=== PATIENT | male | born 1950 | race Caucasian/White ===

== ENCOUNTER 2018-02-25 18:20 | Inpatient (IN) ==
--- NOTE | 2018-02-25 18:43 | Emergency Department Note ---
Disposition Clinical Impression: Septic olecranon bursitis of right elbow Disposition: Admitted As Inpatient Condition: Fair General Adult HPI - General Chief complaint: ED Skin/Abscess/Foreign Body Stated complaint: Right Elbow infection Nursing Notes Reviewed: Yes Vital Signs Reviewed: Yes - History of Present Illness HPI Narrative: 67-year-old male presents to the emergency department with concern for right elbow pain and swelling. Patient reports noticing some redness and swelling there since last Tuesday. Patient was given Bactrim and mupirocin ointment a few days ago. Patient presents to the emergency department because things have gotten worse. Patient denies any fevers. - Related Data Home Medications Medication Instructions Recorded Confirmed HYDROcodone/Acet 10/325 mg [[place] 1.5 tab PO TIDWM 02/23/18 02/25/18 10-325 mg] Mupirocin [Bactroban Oint] 1 TP 02/25/18 Omeprazole [PriLOSEC] 40 mg PO DAILY 02/25/18 02/25/18 Sulfamethoxazole/Trimeth Oral 800 mg PO BID 02/25/18 02/25/18 Allergies Allergy/AdvReac Type Severity Reaction Status Date / Time No Known Allergies Allergy Verified 02/23/18 17:23 All systems ED: reviewed and negative except as stated. Review of Systems: As Per HPI Constitutional: Denies: fever Cardiovascular: Denies: chest pain Respiratory: Denies: dyspnea Gastrointestinal: Denies: abdominal pain Genitourinary: Denies: urgency Musculoskeletal: Reports: other (Right elbow pain) Integumentary: Reports: other (Right elbow swelling and erythema) Neurological: Denies: headache Endocrine: Denies: fatigue Past Medical History - Past Medical History Medical history: Reports: other Surgical history: Reports: non-contributory Psychiatric history: Reports: no psych history - Social History Smoking Status: Current every day smoker Smokeless Tobacco Status: No Alcohol use: Reports: none Physical Exam - Head Head exam: atraumatic, normocephalic - Eye Eye exam: Present: EOMI - ENT ENT exam: normal oropharynx - Neck Neck exam: Present: trachea midline - Chest Chest inspection: Present: symmetric chest wall rise - Respiratory Respiratory exam: Present: normal lung sounds bilaterally. Absent: respiratory distress - Cardiovascular Cardiovascular exam: Present: regular rate, normal rhythm, normal heart sounds - Abdominal Exam Abdominal exam: Absent: distention, guarding, rebound, rigidity - Extremities Exam Extremities exam: Present: normal capillary refill - Expanded Upper Extremity Exam Elbow exam: Present: tenderness (Purulent drainage of the right elbow), swelling - Back Exam Back exam: Absent: CVA tenderness (R), CVA tenderness (L) - Neurological Exam Neurological exam: Present: alert, oriented X3 - Psychiatric Psychiatric exam: Present: normal affect, normal mood - Skin Skin exam: Present: warm, dry, intact Course Vital Signs Temperature 98.1 F 02/25/18 18:21 Pulse Rate 73 02/25/18 18:21 Respiratory Rate 16 02/25/18 18:21 Blood Pressure 128/78 02/25/18 18:21 O2 Sat by Pulse Oximetry 96 02/25/18 18:21 Temperature 99.2 F 02/25/18 23:18 Pulse Rate 75 02/25/18 23:18 Respiratory Rate 16 02/25/18 23:18 Blood Pressure 143/83 02/25/18 23:18 O2 Sat by Pulse Oximetry 98 02/25/18 23:18 Oxygen Delivery Oxygen Delivery Room Air Procedures - Bursa Procedures Consent Obtained: verbal consent Time Out Performed: Yes Side of body: right Site of Procedure: olecranon bursa XRAY Obtained: other (CT scan obtained) Antisepsis Used: Chlorhexidine Amount of anesthesia used (mL): 5 Fluid Obtained (mls): 1 Fluid Type: purulent Patient Tolerated Procedure: well, no complications Medical Decision Making - [facility] Narrative Medical decision making narrative: 67-year-old male presents emergency department with concern for erythema and swelling of the right elbow. This time, the main concern is for septic bursitis. Patient failed outpatient management on Bactrim and mupirocin ointment. We will obtain CT scan of the right elbow with IV contrast. We will give fluids. We will obtain CBC, BMP, sedimentation rate, CRP. We have offered patient medicine for pain, but he states he does not want any at this time. We have started IV clindamycin and IV vancomycin. CT scan of the elbow reveals olecranon bursitis with fluid collection measuring 1.5 x 2.4 x 2.5 cm with surrounding subcutaneous edema and adjacent skin thickening suggesting cellulitis. No concern for osseous abnormality and no evidence for osteomyelitis. Patient had a leukocytosis of 17.2. I have spoken with orthopedic surgery. Dr. Rincon states he will follow patient in the morning. The laceration was attempted. Did not to to drain much. The bursa was filled with purulent material. We have cultured it. Spoke with Dr. Mohan the hospitalist. He agreed to accept patient for admission. Vital Signs Temperature 98.1 F 02/25/18 18:21 Pulse Rate 73 02/25/18 18:21 Respiratory Rate 16 02/25/18 18:21 Blood Pressure 128/78 02/25/18 18:21 O2 Sat by Pulse Oximetry 96 02/25/18 18:21 Temperature 99.2 F 02/25/18 23:18 Pulse Rate 75 02/25/18 23:18 Respiratory Rate 16 02/25/18 23:18 Blood Pressure 143/83 02/25/18 23:18 O2 Sat by Pulse Oximetry 98 02/25/18 23:18 Oxygen Delivery Oxygen Delivery Room Air Elbow CT 02/25/18 18:44 IMPRESSION: 1. Olecranon bursitis with fluid collection present measuring approximate 1.5 x 2.4 x 2.5 cm. Pronounced surrounding subcutaneous edema and adjacent skin thickening suggesting cellulitis. Edema extends into the visualized forearm and also involve the visualized distal arm. 2. No acute osseous abnormality and no evidence for osteomyelitis. D/ / Ish Santoyo MD / Ish Santoyo MD Interpreting Provider: Ish Santoyo MD Elbow CT 02/25/18 18:44 IMPRESSION: 1. Olecranon bursitis with fluid collection present measuring approximate 1.5 x 2.4 x 2.5 cm. Pronounced surrounding subcutaneous edema and adjacent skin thickening suggesting cellulitis. Edema extends into the visualized forearm and also involve the visualized distal arm. 2. No acute osseous abnormality and no evidence for osteomyelitis. D/ / Ish Santoyo MD / Ish Santoyo MD Interpreting Provider: Ish Santoyo MD - Lab Data Result diagrams: 02/25/18 18:50 02/25/18 18:50 Lab Results 02/25/18 02/25/18 02/25/18 Range/Units 18:50 18:50 18:50 WBC 17.2 H (4.3-11.1) K/mcL RBC 3.94 L (4.19-5.50) M/mcL Hgb 11.9 L (12.9-16.9) g/dL Hct 34.9 L (37.5-50.1) % MCV 88.6 (83.0-100.0) fL MCH 30.2 (28.0-33.3) pg MCHC 34.1 (31.6-35.5) g/dL RDW 12.5 (11.5-14.5) % Plt Count 165 (140-400) K/mcL MPV 12.2 (9.4-12.4) fL Immature Gran % 0.4 (0-4) % Seg Neutrophils % 81.3 % Lymphocytes % 9.9 % Monocytes % 7.6 % Eosinophils % 0.6 % Basophils % 0.2 % Neutrophils # 14.0 H (1.6-8.9) K/mcL Lymphocytes # 1.7 (0.6-4.6) K/mcL Monocytes # 1.3 (0.0-1.3) K/mcL Eosinophils # 0.1 (0.0-0.6) K/mcL Basophils # 0.0 (0.0-0.2) K/mcL ESR 19 H (0-10) mm/hr Sodium 139 (136-145) mEq/L Potassium 4.1 (3.5-5.1) mEq/L Chloride 110 H (98-107) mEq/L Carbon Dioxide 23 (23-29) mEq/L BUN 23 (8-23) mg/dL Creatinine 1.19 (0.70-1.30) mg/dL Est GFR ( Amer) > 60 (> 60) Est GFR (Non-Af Amer) > 60 (> 60) BUN/Creatinine Ratio 19 (6-26) Glucose 111 H (70-105) mg/dL Calculated Osmolality 292 (280-300) Lactic Acid (0.5-2.2) mmol/L Calcium 9.2 (8.6-10.3) mg/dL C-Reactive Protein 169 H (Less than 10) mg/L 02/25/18 Range/Units 18:50 WBC (4.3-11.1) K/mcL RBC (4.19-5.50) M/mcL Hgb (12.9-16.9) g/dL Hct (37.5-50.1) % MCV (83.0-100.0) fL MCH (28.0-33.3) pg MCHC (31.6-35.5) g/dL RDW (11.5-14.5) % Plt Count (140-400) K/mcL MPV (9.4-12.4) fL Immature Gran % (0-4) % Seg Neutrophils % % Lymphocytes % % Monocytes % % Eosinophils % % Basophils % % Neutrophils # (1.6-8.9) K/mcL Lymphocytes # (0.6-4.6) K/mcL Monocytes # (0.0-1.3) K/mcL Eosinophils # (0.0-0.6) K/mcL Basophils # (0.0-0.2) K/mcL ESR (0-10) mm/hr Sodium (136-145) mEq/L Potassium (3.5-5.1) mEq/L Chloride (98-107) mEq/L Carbon Dioxide (23-29) mEq/L BUN (8-23) mg/dL Creatinine (0.70-1.30) mg/dL Est GFR ( Amer) (> 60) Est GFR (Non-Af Amer) (> 60) BUN/Creatinine Ratio (6-26) Glucose (70-105) mg/dL Calculated Osmolality (280-300) Lactic Acid 0.9 (0.5-2.2) mmol/L Calcium (8.6-10.3) mg/dL C-Reactive Protein (Less than 10) mg/L
[2018-02-25] MEDS ORDERED: Isovue-370 500 ML INFUS..BTL IV ONE (18:44)
[2018-02-25] MEDS ORDERED: 0.9 % Sodium Chloride 1,000 ML IVC ONE (18:47)
[2018-02-25] MEDS ORDERED: Clindamycin 900 MG/50 ML 900 MG/50 ML IV.SOLN IVPB ONE (18:48)
--- NOTE | 2018-02-25 18:48 | Emergency Department Note ---
Disposition Clinical Impression: Septic olecranon bursitis of right elbow Disposition: Admitted As Inpatient Condition: Fair Referrals: Medhat Jones Jr, MD [Primary Care Provider] - Forms: ED Satisfaction Letter Time of Disposition: 21:49 General Adult HPI - General Chief complaint: ED Skin/Abscess/Foreign Body Stated complaint: Right Elbow infection Source: patient - History of Present Illness Pain Scale: 3 - Related Data Home Medications Medication Instructions Recorded Confirmed Fluoxetine 02/23/18 02/23/18 Hydrocodon-Acetaminophn 10-325 02/23/18 Morphine Sulfate ER 02/23/18 Naprosyn 02/23/18 Prilosec Otc 02/23/18 Zanaflex 02/23/18 Previous Rx's Medication Instructions Recorded Mupirocin [Bactroban Oint] 1 appl TP BID 7 Days tube 02/23/18 Sulfamethoxazole/Trimeth DS 1 each PO BID #14 tablet 02/23/18 [Bactrim DS] Allergies Allergy/AdvReac Type Severity Reaction Status Date / Time No Known Allergies Allergy Verified 02/23/18 17:23 Past Medical History - Past Medical History Medical history: Reports: other Surgical history: Reports: non-contributory Psychiatric history: Reports: no psych history - Social History Smoking Status: Current every day smoker Smokeless Tobacco Status: No Alcohol use: Reports: none Drug use: Reports: none Physical Exam - General General appearance: alert Course Vital Signs Temperature 98.1 F 02/25/18 18:21 Pulse Rate 73 02/25/18 18:21 Respiratory Rate 16 02/25/18 18:21 Blood Pressure 128/78 02/25/18 18:21 O2 Sat by Pulse Oximetry 96 02/25/18 18:21 Temperature 98.1 F 02/25/18 18:29 Pulse Rate 67 02/25/18 20:25 Respiratory Rate 16 02/25/18 20:25 Blood Pressure 141/75 02/25/18 20:25 O2 Sat by Pulse Oximetry 97 02/25/18 20:25 Oxygen Delivery Oxygen Delivery Room Air Medical Decision Making - Lab Data Result diagrams: 02/25/18 18:50 02/25/18 18:50 Lab Results 02/25/18 02/25/18 02/25/18 Range/Units 18:50 18:50 18:50 WBC 17.2 H (4.3-11.1) K/mcL RBC 3.94 L (4.19-5.50) M/mcL Hgb 11.9 L (12.9-16.9) g/dL Hct 34.9 L (37.5-50.1) % MCV 88.6 (83.0-100.0) fL MCH 30.2 (28.0-33.3) pg MCHC 34.1 (31.6-35.5) g/dL RDW 12.5 (11.5-14.5) % Plt Count 165 (140-400) K/mcL MPV 12.2 (9.4-12.4) fL Immature Gran % 0.4 (0-4) % Seg Neutrophils % 81.3 % Lymphocytes % 9.9 % Monocytes % 7.6 % Eosinophils % 0.6 % Basophils % 0.2 % Neutrophils # 14.0 H (1.6-8.9) K/mcL Lymphocytes # 1.7 (0.6-4.6) K/mcL Monocytes # 1.3 (0.0-1.3) K/mcL Eosinophils # 0.1 (0.0-0.6) K/mcL Basophils # 0.0 (0.0-0.2) K/mcL ESR 19 H (0-10) mm/hr Sodium 139 (136-145) mEq/L Potassium 4.1 (3.5-5.1) mEq/L Chloride 110 H (98-107) mEq/L Carbon Dioxide 23 (23-29) mEq/L BUN 23 (8-23) mg/dL Creatinine 1.19 (0.70-1.30) mg/dL Est GFR ( Amer) > 60 (> 60) Est GFR (Non-Af Amer) > 60 (> 60) BUN/Creatinine Ratio 19 (6-26) Glucose 111 H (70-105) mg/dL Calculated Osmolality 292 (280-300) Lactic Acid (0.5-2.2) mmol/L Calcium 9.2 (8.6-10.3) mg/dL C-Reactive Protein 169 H (Less than 10) mg/L 02/25/18 Range/Units 18:50 WBC (4.3-11.1) K/mcL RBC (4.19-5.50) M/mcL Hgb (12.9-16.9) g/dL Hct (37.5-50.1) % MCV (83.0-100.0) fL MCH (28.0-33.3) pg MCHC (31.6-35.5) g/dL RDW (11.5-14.5) % Plt Count (140-400) K/mcL MPV (9.4-12.4) fL Immature Gran % (0-4) % Seg Neutrophils % % Lymphocytes % % Monocytes % % Eosinophils % % Basophils % % Neutrophils # (1.6-8.9) K/mcL Lymphocytes # (0.6-4.6) K/mcL Monocytes # (0.0-1.3) K/mcL Eosinophils # (0.0-0.6) K/mcL Basophils # (0.0-0.2) K/mcL ESR (0-10) mm/hr Sodium (136-145) mEq/L Potassium (3.5-5.1) mEq/L Chloride (98-107) mEq/L Carbon Dioxide (23-29) mEq/L BUN (8-23) mg/dL Creatinine (0.70-1.30) mg/dL Est GFR ( Amer) (> 60) Est GFR (Non-Af Amer) (> 60) BUN/Creatinine Ratio (6-26) Glucose (70-105) mg/dL Calculated Osmolality (280-300) Lactic Acid 0.9 (0.5-2.2) mmol/L Calcium (8.6-10.3) mg/dL C-Reactive Protein (Less than 10) mg/L Attestation Statement - Attestation Attestation: I examined this patient and my medical decision-making was reviewed with the Resident Physician. I agree with the documented findings, disposition and treatment plan as described except to the extent set forth below. Patient presents to the ED with achievement right elbow pain. Patient states is been red and swollen for a week. He was seen at urgent care and been taken Bactrim and putting mupirocin ointment on it. Getting worse. On examination patient is a tender swollen erythematous right elbow. Mostly located over the olecranon. He does have some swelling that extends into the forearm. Plan. Antibiotics and labs. Bedside ultrasound was difficult to obtain as the area is rounded. We will check a CT scan. IV antibiotic and admit with orthopaedic consult. CT shows bursitis. Septic. Attempted to needle aspirate with an 18-gauge needle. Contents of the bursa today to be aspirated. A small amount of jeana pus came from the insertion site of the needle which was sent for culture. Will admit to hospitalist. Elbow CT 02/25/18 18:44 IMPRESSION: 1. Olecranon bursitis with fluid collection present measuring approximate 1.5 x 2.4 x 2.5 cm. Pronounced surrounding subcutaneous edema and adjacent skin thickening suggesting cellulitis. Edema extends into the visualized forearm and also involve the visualized distal arm. 2. No acute osseous abnormality and no evidence for osteomyelitis. D/ / Ish Santoyo MD / Ish Santoyo MD Interpreting Provider: Ish Santoyo MD
[2018-02-25] MEDS ORDERED: Vancomycin 1,000 MG in 0.9 % Sodium Chloride 10 ML IVPB ONE (18:49)
[2018-02-25 19:06] LABS: Basophils % 0.2 %; Eosinophils # 0.1 K/mcL (0.0-0.6); Eosinophils % 0.6 %; Hematocrit 34.9 % (37.5-50.1); Hemoglobin 11.9 g/dL (12.9-16.9); Immature Granulocytes % 0.4 % (0-4); Lymphocytes # 1.7 K/mcL (0.6-4.6); Lymphocytes % 9.9 %; Mean Corpuscular HGB Conc 34.1 g/dL (31.6-35.5); Mean Corpuscular Hemoglobin 30.2 pg (28.0-33.3); Mean Corpuscular Volume 88.6 fL (83.0-100.0); Mean Platelet Volume 12.2 fL (9.4-12.4); Monocytes # 1.3 K/mcL (0.0-1.3); Monocytes % 7.6 %; Platelet Count 165 K/mcL (140-400); Red Blood Count 3.94 M/mcL (4.19-5.50); Red Cell Distribution Width 12.5 % (11.5-14.5); Segmented Neutrophils % 81.3 %
[2018-02-25 19:31] LABS: BUN/Creatinine Ratio 19 (6-26); Blood Urea Nitrogen 23 mg/dL (8-23); C-Reactive Protein 169 mg/L (Less than 10); Calcium 9.2 mg/dL (8.6-10.3); Carbon Dioxide 23 mEq/L (23-29); Chloride 110 mEq/L (98-107); Glucose 111 mg/dL (70-105); Osmolality,Calculated 292 (280-300); Potassium 4.1 mEq/L (3.5-5.1); Sodium 139 mEq/L (136-145); eGFR For African Americans > 60 (> 60); eGFR For Non-African Americans > 60 (> 60)
[2018-02-25] MEDS ORDERED: Lidocaine -MPF 1% 2 ML VIAL INFILT ONE (21:03)
[2018-02-25] MEDS ORDERED: *HR* OxyCODONE/APAP 5/325 TABLET PO ONE (21:23)
[2018-02-26] MEDS ORDERED: Naloxone 0.4 MG/ML INJ IVP PRN (00:35)
--- NOTE | 2018-02-26 00:46 | Internal Med History&Physical ---
Date of Encounter: 02/26/18 Time of Encounter: 00:15 Internal Medicine - H&P: HPI Chief complaint: right elbow pain/swelling Admitted From: Emergency Dept Plans for Post Hospital Care: Home History of present illness: Mr. Jackson is a 67 year old male who presents to the ER tonight with complaints of pain, swelling, redness, and a draining lesion from his right elbow. He first noticed a small pustule about a week ago in his elbow. It then grew and became increasingly tender and warm and swollen over the next several days. He went to the urgent care 3 days ago for evaluation and was placed on antibiotics along with an ointment. He took these antibiotics as prescribed. Nonetheless, the wound became more severe and the pain more intense. He therefore came to ER for evaluation. In the ER, he was found to have some leukocytosis, profound redness, swelling, tenderness and drainage from his wound. A CT scan was performed and revealed olecranon bursitis with surrounding edema suggesting an infection/cellulitis. He was subsequently admitted to hospitalist service with orthopedic consult to Dr. Rincon. Upon my assessment of the patient, he reiterates the above history. He denies any trauma or injury to his elbow. He denies any recent falling or injury. He has had multiple bug bites this summer, but he denies any direct bug bite to his elbow. He has had no ill contacts. He denies any fevers, chills, or night sweats. Appetite and activity have otherwise been normal. Past Med Surg Social Fam HX - Past Medical History Attestation: Yes The following information was validated with the patient. Source: patient, other (ER notes) Medical history: GERD, other (chronic low back pain) Additional medical history: n/a Psychiatric history: no psych history - Past Surgical History Surgical History: orthopedic, other Additional surgical history: back surgery. lobectomy for spontaneous pneumo - Social History Smoking Status: Current every day smoker Smokeless Tobacco Status: No Alcohol use: none Drug use: none Current living situation: Home, With Family Activity Level: Independent ambulation Recent Out of Country Travel Within the Last 8 Weeks: No - Family History Father Age at : 80 Cause of : CABG Hx Family Cardiac Disorders: Yes (MULTIPLE KS'S, CABG, CHF) Hx Family Neurologic Disorders: Yes (STROKE) Mother Living Status: Still Living Internal Medicine - H&P: Meds HYDROcodone/Acet 10/325 mg [[place] 10-325 mg] 1.5 tab PO TIDWM 02/23/18 [History] Mupirocin [Bactroban Oint] 1 TP 02/25/18 [History] Omeprazole [PriLOSEC] 40 mg PO DAILY 02/25/18 [History] Sulfamethoxazole/Trimeth Oral 800 mg PO BID 02/25/18 [History] 3 Allergy/AdvReac Type Severity Reaction Status Date / Time No Known Allergies Allergy Verified 02/23/18 17:23 - Constitutional Constitutional: no chills, no fever(s), no night sweats - EENT Eyes: no change in vision Ears: no ear pain, no tinnitus Nose, mouth and throat: no nasal congestion, no sore throat - Cardiovascular Cardiovascular ROS IM: no chest pain, no dyspnea, no dyspnea on exertion - Respiratory Respiratory: no cough, no chest congestion, no excessive phlegm production - Gastrointestinal Gastrointestinal: no abdominal pain, no diarrhea, no vomiting - Genitourinary Genitourinary ROS male: no dysuria, no flank pain, no hematuria - Musculoskeletal Musculoskeletal ROS IM: arthralgias (right elbow), joint swelling (right elbow) - Integumentary Integumentary IM: erythema (right elbow), no rash, no jaundice - Neurological Neurological ROS: no dizziness, no focal weakness, no frequent falls, no headache(s) - Psychiatric Psychiatric: no anxiety, no depression - Endocrine Endocrine IM: no polydipsia, no polyuria - Allergic/Immunologic Allergic/Immunologic: no GI upset with certain foods - Constitutional Vitals: Temp Pulse Resp BP Pulse Ox 99.2 F 75 16 143/83 98 02/25/18 23:18 02/25/18 23:18 02/25/18 23:18 02/25/18 23:18 02/25/18 23:18 General appearance: Present: cooperative, A&O X 3, pleasant, no acute distress - Head Head exam: Present: atraumatic, normal inspection - Eye Eye exam: Present: EOMI, normal appearance, PERRL. Absent: scleral icterus Pupils: Present: normal accommodation - ENT ENT exam: Present: mucous membranes moist, normal exam - Neck Neck exam general surgery: Present: full ROM, supple. Absent: tenderness, nuchal rigidity, thyromegaly - Respiratory Respiratory exam: Present: CTAB. Absent: rales, rhonchi, wheezes - Cardiovascular Cardiovascular exam: Present: RRR, +S1, +S2. Absent: diastolic murmur, systolic murmur - GI/Abdominal GI/Abdominal exam: Present: normal bowel sounds, soft. Absent: hepatomegaly, splenomegaly, tenderness - Extremities Exam Extremities exam: Present: full ROM, joint swelling (right elbow with draining wound and surrounding cellulitis), tenderness (right elbow), radial pulses palpable and symmetrical. Absent: calf tenderness, pedal edema Additional comments: right forearm/hand neurovascularly intact - Back Exam Back exam: Absent: CVA tenderness (L), CVA tenderness (R) - Neurological Exam Neurological exam: Present: alert, CN II-XII intact, oriented X3, no focal deficits, strengths equal and symetr throughout - Psychiatric Psychiatric exam: Present: normal affect, normal mood - Skin Skin exam: Present: dry, warm Internal Med - H&P Results - Labs CBC & Chem 7: 02/25/18 18:50 02/25/18 18:50 - Diagnostic Studies Other Images Status: image reviewed by me (CT ELBOW: images reviewed; report reviewed) - Assessment and plan (1) Septic olecranon bursitis of right elbow Current Visit: Yes Status: Acute Assessment and plan: 1. Wound culture obtained in ER. 2. Patient advised to keep arm elevated while in bed. 3. Dr. Rincon consulted from ER -- will see in the morning and proceed with intervention as necessary. 4. Antibiotics and pain control. (2) Cellulitis Current Visit: Yes Status: Acute Assessment and plan: 1. Will place patient on IV Vancomycin and Zosyn. 2. Wound cultures obtained -- follow and adjust antibiotics per culture results. 3. Wound care/intervention per Dr. Rincon. 4. Patient failed outpatient treatment thus necessitating IV antibiotics and surgical intervention. Qualifiers: Site of cellulitis: extremity Site of cellulitis of extremity: upper extremity Laterality: right Qualified Code(s): L03.113 - Cellulitis of right upper limb (3) Chronic GERD Current Visit: Yes Status: Chronic Assessment and plan: 1. Continue Omeprazole. (4) DVT prophylaxis Current Visit: Yes Status: Acute Assessment and plan: 1. Heparin SQ.
[2018-02-26] MEDS: Ibuprofen 400 MG TABLET PO PRN ×3 (01:25→23:58)
[2018-02-26] MEDS: *HR* HYDROcodone/Acet 10/325 mg TABLET PO SCH ×4 (01:25→17:10)
[2018-02-26] MEDS: 0.9 % Sodium Chloride 1,000 ML IVC SCH ×2 (01:26→15:00)
[2018-02-26 02:20] LABS: Basophils % 0.2 %; Eosinophils # 0.1 K/mcL (0.0-0.6); Eosinophils % 0.3 %; Hematocrit 33.2 % (37.5-50.1); Hemoglobin 11.3 g/dL (12.9-16.9); Immature Granulocytes % 0.3 % (0-4); Lymphocytes # 1.7 K/mcL (0.6-4.6); Lymphocytes % 9.8 %; Mean Corpuscular Hemoglobin 30.5 pg (28.0-33.3); Mean Corpuscular Volume 89.5 fL (83.0-100.0); Mean Platelet Volume 12.6 fL (9.4-12.4); Monocytes # 1.2 K/mcL (0.0-1.3); Monocytes % 6.7 %; Neutrophils # 14.7 K/mcL (1.6-8.9); Platelet Count 160 K/mcL (140-400); Red Blood Count 3.71 M/mcL (4.19-5.50); Red Cell Distribution Width 12.6 % (11.5-14.5); Segmented Neutrophils % 82.7 %
[2018-02-26 02:28] LABS: INR 1.2
[2018-02-26 02:31] LABS: Activated Partial Thrombo Time 29.7 Seconds (26.0-36.0)
[2018-02-26 02:34] LABS: Alanine Aminotransferase 9 Units/L (7-52); Albumin/Globulin Ratio 1.4 (1.1-2.2); Alkaline Phosphatase 95 Units/L (34-104); Aspartate Amino Transferase 14 Units/L (13-39); BUN/Creatinine Ratio 17 (6-26); Bilirubin,Total 0.5 mg/dL (0.3-1.0); Blood Urea Nitrogen 18 mg/dL (8-23); Carbon Dioxide 20 mEq/L (23-29); Chloride 111 mEq/L (98-107); Globulin 2.8 g/dL (2.4-3.5); Glucose 100 mg/dL (70-105); Osmolality,Calculated 286 (280-300); Sodium 137 mEq/L (136-145); Total Protein 6.8 g/dL (6.4-8.9); eGFR For African Americans > 60 (> 60); eGFR For Non-African Americans > 60 (> 60)
[2018-02-26] MEDS: *HR* Heparin 5,000 UNIT/ML VIAL SQ SCH ×2 (06:52→16:47)
[2018-02-26] MEDS: Piperacillin/Tazobactam 3.375 GM in 0.9 % Sodium Chloride Mini Bag 100 ML IVPB SCH ×3 (07:38→23:58)
--- NOTE | 2018-02-26 07:54 | Orthopedic Consult Note ---
Date of Encounter: 02/26/18 Time of Encounter: 07:53 History of Present Illness HPI: Mr. Jackson is a 67 year old male Seen this morning with admission for an infected olecranon bursitis. Patient had a small opening placed to drain the bursa by the ER doc. Patient on IV antibiotics. Right upper extremity Dressing clean dry and intact Neurovascular intact Minimal pain on motion We will continue to monitor recommend 24-48 hours of IV antibiotics. Past Med Surg Social Fam HX - Past Medical History Medical history: GERD, other (chronic low back pain) Additional medical history: n/a Psychiatric history: no psych history - Past Surgical History Surgical History: orthopedic, other Additional surgical history: back surgery. lobectomy for spontaneous pneumo - Social History Smoking Status: Current every day smoker Smokeless Tobacco Status: No Alcohol use: none Drug use: none - Family History Father Age at : 80 Cause of : CABG Hx Family Cardiac Disorders: Yes (MULTIPLE IL'S, CABG, CHF) Hx Family Neurologic Disorders: Yes (STROKE) Mother Living Status: Still Living Medications and Allergies HYDROcodone/Acet 10/325 mg [[place] 10-325 mg] 1.5 tab PO TIDWM 02/23/18 [History] Mupirocin [Bactroban Oint] 1 TP 02/25/18 [History] Omeprazole [PriLOSEC] 40 mg PO DAILY 02/25/18 [History] Sulfamethoxazole/Trimeth Oral 800 mg PO BID 02/25/18 [History] 3 Allergy/AdvReac Type Severity Reaction Status Date / Time No Known Allergies Allergy Verified 02/23/18 17:23 All Systems Reviewed: The remainder of the systems were reviewed and are negative Physical Exam - Constitutional Vitals: Temp Pulse Resp BP Pulse Ox 99.1 F 69 16 100/52 96 02/26/18 04:35 02/26/18 04:35 02/26/18 04:35 02/26/18 04:35 02/26/18 04:35 Results - Labs Result Diagrams: 02/26/18 01:54 02/26/18 01:54 Labs: Abnormal lab results WBC 17.8 K/mcL (4.3-11.1) H 02/26/18 01:54 RBC 3.71 M/mcL (4.19-5.50) L 02/26/18 01:54 Hgb 11.3 g/dL (12.9-16.9) L 02/26/18 01:54 Hct 33.2 % (37.5-50.1) L 02/26/18 01:54 MPV 12.6 fL (9.4-12.4) H 02/26/18 01:54 Neutrophils # 14.7 K/mcL (1.6-8.9) H 02/26/18 01:54 ESR 19 mm/hr (0-10) H 02/25/18 18:50 PT 13.0 Seconds (9.4-12.1) H 02/26/18 01:54 Chloride 111 mEq/L (98-107) H 02/26/18 01:54 Carbon Dioxide 20 mEq/L (23-29) L 02/26/18 01:54 C-Reactive Protein 169 mg/L (Less than 10) H 02/25/18 18:50 H & H 02/26/18 Range/Units 01:54 Hgb 11.3 L (12.9-16.9) g/dL Hct 33.2 L (37.5-50.1) % All other labs normal. Consult Discharge Plan - Plan Referrals: Medhat Jones Jr, MD [Primary Care Provider] -
--- NOTE | 2018-02-26 14:59 | Event Note ---
Date of Encounter: 02/26/18 Time of Encounter: 08:55 Patient is awake and alert. Pain is somewhat improved in right elbow. Denies any fever or chills. No nausea or vomiting. Evaluated by orthopedics. Continue current antibiotics.
--- NOTE | 2018-02-27 06:21 | Orthopedics Progress Note ---
Date of Encounter: 02/27/18 Time of Encounter: 06:20 Subjective Interval history: Patient seen this morning for right elbow. Physical exam shows sloughing of skin no obvious drainage No significant pain of motion. Patient will be evaluated by hand/elbow surgeon for further treatment. Objective Vital signs: Vital Signs Temp Pulse Resp BP Pulse Ox 02/27/18 00:04 97.9 F 60 18 112/72 96 02/26/18 19:04 98.1 F 57 18 103/53 95 02/26/18 15:20 99.1 F 69 18 114/63 95 02/26/18 11:26 99.0 F 66 18 110/79 95 02/26/18 08:08 96 02/26/18 08:00 99.4 F 66 18 107/61 96 Intake and Output 02/26/18 02/26/18 02/27/18 15:59 23:59 07:59 Intake Total 1590 / 1590 960 / 960 350 / 350 Output Total 700 / 700 Balance 1590 / 1590 960 / 960 -350 / -350 Intake: IV Fluids 1350 / 1350 350 / 350 100 / 100 0.9 % Sodium Chloride 1,000 ML 1000 / 1000 @ 100 mls/hr IVC .Q10H RONIT Rx#: [id number] Zosyn 3.375 GM In 0.9 % Sodium 100 / 100 100 / 100 100 / 100 Chloride (Mini-Bag +) 100 ML @ 25 mls/hr IVPB Q8HR RONIT Rx#: [id number] Vancocin 1,250 MG In 0.9 % 250 / 250 250 / 250 Sodium Chloride 250 ML @ 166.67 mls/hr IVPB Q12H RONIT Rx#: [id number] Oral 240 / 240 610 / 610 250 / 250 Output: Urine 700 / 700 Other: Meal Breakfast Dinner Percent of Meal Consumed 100% 100% # Voids 1 1 - Labs CBC & BMP: 02/26/18 01:54 02/26/18 01:54 Labs: Abnormal lab results WBC 17.8 K/mcL (4.3-11.1) H 02/26/18 01:54 RBC 3.71 M/mcL (4.19-5.50) L 02/26/18 01:54 Hgb 11.3 g/dL (12.9-16.9) L 02/26/18 01:54 Hct 33.2 % (37.5-50.1) L 02/26/18 01:54 MPV 12.6 fL (9.4-12.4) H 02/26/18 01:54 Neutrophils # 14.7 K/mcL (1.6-8.9) H 02/26/18 01:54 ESR 19 mm/hr (0-10) H 02/25/18 18:50 PT 13.0 Seconds (9.4-12.1) H 02/26/18 01:54 Chloride 111 mEq/L (98-107) H 02/26/18 01:54 Carbon Dioxide 20 mEq/L (23-29) L 02/26/18 01:54 C-Reactive Protein 169 mg/L (Less than 10) H 02/25/18 18:50 Consult Discharge Plan - Plan Referrals: Medhat Jones Jr, MD [Primary Care Provider] -
[2018-02-27] MEDS: *HR* Heparin 5,000 UNIT/ML VIAL SQ SCH ×2 (06:23→18:09)
[2018-02-27] MEDS ORDERED: Aminoglycoside Consult 1 EACH MC ONE (07:24)
[2018-02-27] MEDS: *HR* HYDROcodone/Acet 10/325 mg TABLET PO SCH ×3 (08:17→16:16)
[2018-02-27] MEDS: Piperacillin/Tazobactam 3.375 GM in 0.9 % Sodium Chloride Mini Bag 100 ML IVPB SCH ×3 (08:17→23:23)
--- NOTE | 2018-02-27 10:31 | Orthopedics Progress Note ---
Date of Encounter: 02/27/18 Time of Encounter: 10:00 - Assessment and Plan (1) Septic olecranon bursitis of right elbow Current Visit: Yes Status: Acute Discussed case with Dr. Zarate. Recommend surgical incision and drainage of the right elbow. Plan for surgery by Dr. Zarate tomorrow. Discussed procedure as well as r/b/a with the patient who expressed understanding. Consent obtained. NPO after midnight tonight. ROM of elbow as tolerated. Elevate and ice as needed. Nurse will recover with dry gauze/kerlix dressings. Preliminary cx shows presumptive staph. Continue IV abx. Subjective Principal diagnosis: right elbow olecranon bursitis Interval history: This is my first evaluation of this patient. Brief history - Patient first notice roughly 1 week ago a small raised area on right elbow like a pimple that he opened and got a small amount pus drainage at that time. Since that time he states the area has become more swollen, red and painful. He went to urgent care on 02/23/18 and was given bactrim and bactroban ointment. He felt it continued to worsen and came to the ER 2 days later. In ER aspiration was attempted. He has been on IV abx since that time. Patient states the elbow feels a little better over the past 2 days. He does c/o aching pain constant, worse with motion and continued drainage from the wound. Denies any numbness or tingling. He is right hand dominant. Objective Vital signs: Vital Signs Temp Pulse Resp BP Pulse Ox 02/27/18 08:00 97 02/27/18 06:55 99.5 F 70 18 138/65 97 02/27/18 00:04 97.9 F 60 18 112/72 96 02/26/18 19:04 98.1 F 57 18 103/53 95 02/26/18 15:20 99.1 F 69 18 114/63 95 02/26/18 11:26 99.0 F 66 18 110/79 95 Intake and Output 02/26/18 02/27/18 02/27/18 23:59 07:59 15:59 Intake Total 960 / 960 350 / 350 Output Total 700 / 700 Balance 960 / 960 -350 / -350 Intake: IV Fluids 350 / 350 100 / 100 Zosyn 3.375 GM In 0.9 % Sodium 100 / 100 100 / 100 Chloride (Mini-Bag +) 100 ML @ 25 mls/hr IVPB Q8HR RONIT Rx#: [id number] Vancocin 1,250 MG In 0.9 % 250 / 250 Sodium Chloride 250 ML @ 166.67 mls/hr IVPB Q12H RONIT Rx#: [id number] Oral 610 / 610 250 / 250 Output: Urine 700 / 700 Other: Meal Dinner Percent of Meal Consumed 100% # Voids 1 1 Incision: swollen (right posterior elbow has moderate erythema and swelling with multiple pinpoint openings proximal to the olecranon with purulent drainage expressed from these opening with gentle pressure. Moderate tenderness to palpation, slight fluctuance to this area. Skin sloughing around olecranon. Elbow ROM limited 20-100 degrees. Full ROM of hand and wrist. Grossly NV intact. ) - Labs CBC & BMP: 02/26/18 01:54 02/26/18 01:54 Labs: Abnormal lab results WBC 17.8 K/mcL (4.3-11.1) H 02/26/18 01:54 RBC 3.71 M/mcL (4.19-5.50) L 02/26/18 01:54 Hgb 11.3 g/dL (12.9-16.9) L 02/26/18 01:54 Hct 33.2 % (37.5-50.1) L 02/26/18 01:54 MPV 12.6 fL (9.4-12.4) H 02/26/18 01:54 Neutrophils # 14.7 K/mcL (1.6-8.9) H 02/26/18 01:54 ESR 19 mm/hr (0-10) H 02/25/18 18:50 PT 13.0 Seconds (9.4-12.1) H 02/26/18 01:54 Chloride 111 mEq/L (98-107) H 02/26/18 01:54 Carbon Dioxide 20 mEq/L (23-29) L 02/26/18 01:54 C-Reactive Protein 169 mg/L (Less than 10) H 02/25/18 18:50 Vancomycin Trough 13 mcg/mL (5-10) H 02/27/18 06:40 Consult Discharge Plan - Plan Referrals: Medhat Jones Jr, MD [Primary Care Provider] -
--- NOTE | 2018-02-27 11:25 | Internal Med Progress Note ---
Date of Encounter: 02/27/18 Time of Encounter: 08:50 - Assessment and plan (1) Septic olecranon bursitis of right elbow Current Visit: Yes Status: Acute Assessment and plan: Being evaluated by orthopedics. On IV antibiotics. Clinically getting better. Plan for incision and drainage tomorrow. Wound culture growing gram-positive cocci. On vancomycin for possible MRSA. (2) Cellulitis Current Visit: Yes Status: Acute Assessment and plan: With abscess due to septic bursitis of the olecranon bursa on the right hand. Management as above Qualifiers: Site of cellulitis: extremity Site of cellulitis of extremity: upper extremity Laterality: right Qualified Code(s): L03.113 - Cellulitis of right upper limb (3) DVT prophylaxis Current Visit: Yes Status: Acute Assessment and plan: Continue subcutaneous heparin (4) Chronic GERD Current Visit: Yes Status: Chronic Assessment and plan: On omeprazole. Will continue. - Time Spent With Patient Total time spent is greater than 50% in coordination of care (as documented) at patient's floor/unit and/or counseling patient: - Subjective Interval history: Patient feels that the swelling in his right elbow has improved since yesterday. Pain is less severe. No fever or chills reported overnight. No nausea or vomiting. - Constitutional Vitals: Temp Pulse Resp BP Pulse Ox 99.5 F 70 18 138/65 97 02/27/18 06:55 02/27/18 06:55 02/27/18 06:55 02/27/18 06:55 02/27/18 08:00 General appearance: Present: cooperative, A&O X 3, pleasant, no acute distress - Respiratory Respiratory exam: Present: CTAB. Absent: accessory muscle use, rales, rhonchi, wheezes - Cardiovascular Cardiovascular exam: Present: RRR, +S1, +S2. Absent: diastolic murmur, gallop, rubs, systolic murmur - GI/Abdominal GI/Abdominal exam: Present: normal bowel sounds, soft, no peritoneal signs. Absent: distended, tenderness - Extremities Exam Extremities exam: Present: warm, radial pulses palpable and symmetrical. Absent : calf tenderness, cyanotic, pedal edema Additional comments: Swelling over the right elbow improving. Erythema has significantly come down. Wound is currently bandaged. - Neurological Exam Neurological exam: Present: CN II-XII intact, oriented X3, no focal deficits. Absent: pronater drift, facial droop, speech deficit - Skin Skin exam: Present: dry, intact Internal Medicine: Result - Labs CBC & Chem 7: 02/26/18 01:54 02/26/18 01:54 - ABG Interpretation ABG results: PT/INR, D-dimer PT 13.0 Seconds (9.4-12.1) H 02/26/18 01:54 Consult Discharge Plan - Plan Referrals: Medhat Jones Jr, MD [Primary Care Provider] -
--- NOTE | 2018-02-27 22:50 | Anesthesia Evaluation PreOp ---
Date of Encounter: 02/27/18 Time of Encounter: 22:48 - Past History Planned Operation: Right Elbow Olecranon Bursa I&D Cardiac History: Denies any Significant Hx Pulmonary History: Smoker WOMEN SPECIALIST History: Denies Any Significant HX Other Medical History: GERD, Other (chronic Low back Pain) Anesthesia History: No Prior Anesthetic Complications, Past Anesthesia (back surgery. lobectomy for spontaneous pneumo) Alcohol Use: none Drug use: none Medications and Allergies HYDROcodone/Acet 10/325 mg [[place] 10-325 mg] 1 tab PO Q4H PRN 02/23/18 [History] Mupirocin [Bactroban Oint] 1 appl TP DAILY 02/25/18 [History] Omeprazole [PriLOSEC] 40 mg PO DAILY 02/25/18 [History] Sulfamethoxazole/Trimeth DS [Bactrim DS] 1 tab PO BID 02/25/18 [History] Gabapentin [Neurontin] 600 mg PO HS 02/26/18 [History] 3 Allergy/AdvReac Type Severity Reaction Status Date / Time No Known Allergies Allergy Verified 02/23/18 17:23 - Meds/Allergy Pre-op Review Medications Reviewed: Yes Allergies Reviewed: Yes Beta Blockers on Current Med List: No Anesthesia Results - Labs 02/26/18 01:54 02/26/18 01:54 Anesthesia Exam Vital Signs/O2 Sat, Most Current Temp Pulse Resp BP Pulse Ox 98.7 F 63 18 126/70 95 02/27/18 19:03 02/27/18 19:03 02/27/18 19:03 02/27/18 19:03 02/27/18 19:03 - HEENT Pupil (Motor): Pupils equal, EOMI Anesthesia Assess/Plan ASA Score: 2 Anesthetic Plan: General Monitoring Plan: Standard Monitors Recovery Plan: PACU
[2018-02-28 01:38] LABS: Basophils % 0.4 %; Eosinophils # 0.1 K/mcL (0.0-0.6); Eosinophils % 0.9 %; Hematocrit 31.1 % (37.5-50.1); Hemoglobin 10.9 g/dL (12.9-16.9); Immature Granulocytes % 0.3 % (0-4); Lymphocytes # 1.7 K/mcL (0.6-4.6); Lymphocytes % 15.2 %; Mean Corpuscular Hemoglobin 31.1 pg (28.0-33.3); Mean Corpuscular Volume 88.6 fL (83.0-100.0); Mean Platelet Volume 12.3 fL (9.4-12.4); Monocytes # 0.9 K/mcL (0.0-1.3); Monocytes % 7.5 %; Neutrophils # 8.5 K/mcL (1.6-8.9); Platelet Count 191 K/mcL (140-400); Red Blood Count 3.51 M/mcL (4.19-5.50); Red Cell Distribution Width 12.4 % (11.5-14.5); Segmented Neutrophils % 75.7 %
[2018-02-28 01:58] LABS: BUN/Creatinine Ratio 15 (6-26); Blood Urea Nitrogen 16 mg/dL (8-23); Calcium 8.6 mg/dL (8.6-10.3); Carbon Dioxide 21 mEq/L (23-29); Chloride 109 mEq/L (98-107); Glucose 118 mg/dL (70-105); Osmolality,Calculated 286 (280-300); Potassium 3.8 mEq/L (3.5-5.1); Sodium 137 mEq/L (136-145); eGFR For African Americans > 60 (> 60); eGFR For Non-African Americans > 60 (> 60)
[2018-02-28] MEDS: *HR* Heparin 5,000 UNIT/ML VIAL SQ SCH ×2 (05:05→18:28)
[2018-02-28] MEDS: Ibuprofen 400 MG TABLET PO PRN ×2 (06:49→21:10)
[2018-02-28] MEDS: *HR* HYDROcodone/Acet 10/325 mg TABLET PO SCH ×3 (08:15→18:28)
[2018-02-28] MEDS: Piperacillin/Tazobactam 3.375 GM in 0.9 % Sodium Chloride Mini Bag 100 ML IVPB SCH (08:17)
--- NOTE | 2018-02-28 13:52 | Internal Med Progress Note ---
Date of Encounter: 02/28/18 Time of Encounter: 13:50 - Assessment and plan (1) Septic olecranon bursitis of right elbow Current Visit: Yes Status: Acute Assessment and plan: Being evaluated by orthopedics. On IV antibiotics. Clinically getting better. Plan for incision and drainage today. Wound culture growing MRSA sensitive to ciprofloxacin. D/C vanc and zosyn. ID recs appreciated for length of antibiotics (2) Cellulitis Current Visit: Yes Status: Acute Assessment and plan: With abscess due to septic bursitis of the olecranon bursa on the right hand. Management as above Qualifiers: Site of cellulitis: extremity Site of cellulitis of extremity: upper extremity Laterality: right Qualified Code(s): L03.113 - Cellulitis of right upper limb (3) DVT prophylaxis Current Visit: Yes Status: Acute Assessment and plan: Continue subcutaneous heparin (4) Chronic GERD Current Visit: Yes Status: Chronic Assessment and plan: On omeprazole. Will continue. - Time Spent With Patient Total time spent is greater than 50% in coordination of care (as documented) at patient's floor/unit and/or counseling patient: - Subjective Interval history: No acute events overnight - Constitutional Vitals: Temp Pulse Resp BP Pulse Ox 98.2 F 52 14 139/63 95 02/28/18 11:47 02/28/18 11:47 02/28/18 11:47 02/28/18 11:47 02/28/18 11:47 General appearance: Present: cooperative, A&O X 3, pleasant, no acute distress - Head Head exam: Present: atraumatic, normocephalic - Eye Eye exam: Present: PERRL, conjuntiva pink, sclera anicteric Pupils: Present: PERRL - Neck Neck exam general surgery: Present: supple, trachea midline. Absent: lymphadenopathy - Respiratory Respiratory exam: Present: CTAB. Absent: accessory muscle use, rales, rhonchi, wheezes - Cardiovascular Cardiovascular exam: Present: RRR, +S1, +S2. Absent: diastolic murmur, gallop, rubs, systolic murmur - GI/Abdominal GI/Abdominal exam: Present: normal bowel sounds, soft, no peritoneal signs. Absent: distended, tenderness - Extremities Exam Extremities exam: Present: warm, radial pulses palpable and symmetrical. Absent : calf tenderness, cyanotic, pedal edema - Neurological Exam Neurological exam: Present: CN II-XII intact, oriented X3, no focal deficits. Absent: pronater drift, facial droop, speech deficit - Skin Skin exam: Present: dry, intact Internal Medicine: Result - Labs CBC & Chem 7: 02/28/18 01:01 02/28/18 01:01 Labs: Short CBC 02/28/18 Range/Units 01:01 WBC 11.3 H (4.3-11.1) K/mcL Hgb 10.9 L (12.9-16.9) g/dL Hct 31.1 L (37.5-50.1) % Plt Count 191 (140-400) K/mcL Neutrophils # 8.5 (1.6-8.9) K/mcL BMP 02/28/18 01:01 Sodium 137 Potassium 3.8 Chloride 109 H Carbon Dioxide 21 L BUN 16 Creatinine 1.09 Glucose 118 H Calcium 8.6 - ABG Interpretation ABG results: PT/INR, D-dimer PT 13.0 Seconds (9.4-12.1) H 02/26/18 01:54 Consult Discharge Plan - Plan Referrals: Medhat Jones Jr, MD [Primary Care Provider] -
[2018-02-28] MEDS ORDERED: Lidocaine -MPF 2% 2 ML VIAL ONE (13:53)
[2018-02-28] MEDS ORDERED: Dexamethasone 4 MG/ML VIAL ONE ×2 (13:53→14:50)
[2018-02-28] MEDS ORDERED: *HR* FentaNYL (PF) 100 MCG/2 ML VIAL ONE (13:53)
[2018-02-28] MEDS ORDERED: *HR* Propofol 200 MG/20 ML VIAL IVP ONE ×2 (13:53→16:05)
[2018-02-28] MEDS ORDERED: *HR* Midazolam HCl 2 MG/2 ML VIAL ONE (13:53)
[2018-02-28] MEDS ORDERED: Ondansetron 4 MG/2 ML VIAL ONE (13:53)
[2018-02-28] MEDS ORDERED: Albuterol 2.5 MG/3 ML NEBULIZER IH ONE (14:25)
[2018-02-28] MEDS ORDERED: *HR* Promethazine 25 MG/ML VIAL IVP PRN (14:59)
[2018-02-28] MEDS ORDERED: *HR* OxyCODONE Immed Rel 5 MG TABLET PO PRN (14:59)
[2018-02-28] MEDS: *HR* Morphine 2 MG/ML SYRINGE IVP PRN ×2 (15:37→15:45)
--- NOTE | 2018-02-28 15:37 | Operative Note ---
Date of procedure: 02/28/18 Pre-op diagnosis: Right elbow olecranon bursa abscess Post-op diagnosis: same Procedure: Right elbow incision and drainage of suppurative olecranon bursa Anesthesia: NINOSKA Surgeon: Gerardo Zarate Was there an community program assistant present: No Estimated blood loss (cc): 10 Tourniquet Time (Minutes): 10 Specimen: Cultures sent to microbiology Condition: stable Disposition: PACU Procedure in Detail: Indications: The patient is a 67-year-old man complaining of swelling and pain and erythema at the tip of the right elbow for more than 1 week that causes discomfort with elbow flexion. The patient was admitted through the ER with drainage, which tested positive cultures for MRSA. Procedure: The patient is receiving IV antibiotics on the floor. He was brought into the operating room and placed on the OR table in supine position with the right upper extremity on a hand table. The patient underwent general anesthesia. A tourniquet was placed on the right arm close to the axilla, and the right upper extremity was then prepped and draped in usual sterile fashion. A timeout was performed. The right upper extremity was then elevated, partially exsanguinated with an Reed wrap, and the tourniquet was raised to a pressure of 250 mmHg. the left arm was then draped across the patient's chest prepped over the bump. A 6 cm longitudinal posterior incision was made over the tip of the olecranon, extending proximally to the area with skin was training. The patient's skin was very erythematous and cellulitic. I bluntly dissected through the subcutaneous tissue. There was a lot of necrotic fat and also thickened purulent fibrinous material over the triceps fascia. A hemostat was placed further distally over the olecranon crest bursa and encountered purulent fluid. This was cultured for aerobic and anaerobic. Sharp debridement of the triceps fascia was performed with tenotomies followed by a curet. The wound was copiously irrigated with pulse lavage. The tourniquet was deflated and once again irrigated with pulse lavage. The skin was closed with 3-0 nylon mattress and simple sutures. Approximately to some areas of the wound was left open with skin was brought down. The wound was then packed with quarter-inch iodoform packing. The patient was injected with 10 mL of 0.5% Marcaine for postoperative pain control. Sterile bulky soft dressings applied. The patient was extubated and taken to recovery in stable condition. The packing will be pulled tomorrow.
--- NOTE | 2018-02-28 15:55 | Anesthesia Evaluation Post Op ---
Date of Encounter: 02/28/18 Time of Encounter: 15:54 - Vital Signs Vital Signs: Vital Signs/O2 Sat, Most Current Temp Pulse Resp BP Pulse Ox 97.4 F L 58 14 159/81 93 02/28/18 15:31 02/28/18 15:51 02/28/18 15:51 02/28/18 15:51 02/28/18 15:51 - Lungs Lungs: Clear Ascult./Percussion - Airway Airway: Non-obstructed - Cardiovascular Regular Rate - Mental Status Mental Status: Alert & Oriented, Answers Appropriately - Pain Pain Scale: 5 Pain Scale used: Numeric (1 - 10) - Nausea Vomiting Nausea Vomiting: Not Present - Hydration Hydration: Ice chips, Has not voided - Discharge PostOp Status: Transfer Patient to floor
[2018-02-28] MEDS ORDERED: Naloxone 0.4 MG/ML INJ IVP PRN (16:24)
--- NOTE | 2018-02-28 18:02 | Infectious Disease Consult ---
Date of Encounter: 02/28/18 Time of Encounter: 17:59 Assessment and Plan (1) Sepsis Status: Acute Assessment and plan: had 2 sirs criteria on admission including fever and leukocytosis Qualifiers: Sepsis type: sepsis due to unspecified organism Qualified Code(s): A41.9 - Sepsis, unspecified organism (2) Septic olecranon bursitis of right elbow Status: Acute Assessment and plan: causative organism MRSA s/p I&D by Dr. Best on 02/28 intra op findings: fat necrosis and purulence; intra op cultures pending CT does not reveal osteomyellitis; ESR not very elevated. will get blood cultures wait for intra op cultures to finalize start patient on vancomycin with goal trough around 15 d/c ciprofloxacin d/w patient and about adverse reactions of vancomycin monitor labs and for drug toxicity. (3) HTN (hypertension) Status: Acute Assessment and plan: per hospitalist team Qualifiers: Hypertension type: unspecified Qualified Code(s): I10 - Essential (primary ) hypertension (4) Tobacco abuse Status: Acute Assessment and plan: he actually smokes pipe (5) Bradycardia Status: Acute Assessment and plan: chronic per hospitalist team (6) Cellulitis Status: Acute Qualifiers: Site of cellulitis: extremity Site of cellulitis of extremity: upper extremity Laterality: right Qualified Code(s): L03.113 - Cellulitis of right upper limb Infectious Disease HPI - Data of Consult Patient: new to practice Consult date: 02/28/18 Requesting Physician: Theresa Brown MD Primary Care Provider: Medhat Jones Jr, MD - Consult Narrative Reason for consult: infected bursa and abscess History of present illness: Mr. Jackson is a 67 year old male Patient is 67-year-old gentleman admitted to [facility] on 02/26/2018 for right elbow pain and swelling, we are consulted on February 28 for MRSA infection in the wound. Patient is a 7-year-old gentleman with past medical history mentioned below came to the emergency department on February 25 with pain and swelling redness and drainage from the right elbow. Apparently patient first noticed it about a week prior to admission. The symptoms became worse and worse and the swelling was worse and worse over the next few days. Patient went to the urgent care 3 days prior and he was given antibiotic ointment. Eventually his symptoms got worse and he came to the emergency department for evaluation. Since admission, patient has had low-grade fever with MAXIMUM TEMPERATURE of 100.4 Fahrenheit patient has not had any tachycardia if anything he has been bradycardic today with a heart rate down to 48. Rest of the vital signs reveal elevated blood pressure and normal O2 sats. His presenting WBC was 17.2 thousand with 81% neutrophils and no bands. ESR was 19. CRP was checked and it was 169. BUN and creatinine were 23 and 1.19 respectively. Patient had a CT of the right elbow and the impression was olecranon bursitis with fluid collection present measuring approximately 1.52.42.5 cm. Pronounced surrounding subcutaneous edema and adjacent skin thickening suggesting cellulitis. Edema extends to the visualized forearm and also involves the visual distal arm. No acute osseous abnormality and no evidence of osteomyelitis. Patient was started on vancomycin and Zosyn. Patient also received 1 dose of clindamycin. Patient was evaluated by orthopedics and was taken to surgery today by Dr. bets. Intraoperatively apparently there was lots of necrotic factor and also thick and purulent fibrinous material over the triceps fascia Intra-Op cultures were sent.. Currently, patient lsitting up in bed with at bedside. He denies any complaints. appears comfortable and non toxic. He denied fevers/chills at home. [place] has dogs and cats at home. denies any animal or insect bite. Denies history of infections in the past. He tells me that he has a pcp and his bp usually always normal. As for his low heart rate, he says that's chronic and even his dad had low heart rate. preveious doctors used to ask him if he's a runner. CC: Theresa Brown MD Past Med Surg Social Fam HX - Past Medical History Medical history: GERD, other (chronic low back pain) Additional medical history: n/a Psychiatric history: no psych history - Past Surgical History Surgical History: orthopedic, other Additional surgical history: back surgery. lobectomy for spontaneous pneumo - Social History Smoking Status: Current every day smoker Smokeless Tobacco Status: No Alcohol use: none Drug use: none - Family History Father Age at : 80 Cause of : CABG Hx Family Cardiac Disorders: Yes (MULTIPLE RI'S, CABG, CHF) Hx Family Neurologic Disorders: Yes (STROKE) Mother Living Status: Still Living Infectious Disease-CN:Meds HYDROcodone/Acet 10/325 mg [[place] 10-325 mg] 1 tab PO Q4H PRN 02/23/18 [History] Mupirocin [Bactroban Oint] 1 appl TP DAILY 02/25/18 [History] Omeprazole [PriLOSEC] 40 mg PO DAILY 02/25/18 [History] Sulfamethoxazole/Trimeth DS [Bactrim DS] 1 tab PO BID 02/25/18 [History] Gabapentin [Neurontin] 600 mg PO HS 02/26/18 [History] 3 Allergy/AdvReac Type Severity Reaction Status Date / Time No Known Allergies Allergy Verified 02/23/18 17:23 Review of systems: 10 point ROS done, negative other for what's in the HPI Exam - Constitutional Vitals: Temp Pulse Resp BP Pulse Ox 98.2 F 50 16 160/71 98 02/28/18 17:00 02/28/18 17:00 02/28/18 17:00 02/28/18 17:00 02/28/18 17:00 General appearance: no acute distress, no febrile - Head Head exam: Present: atraumatic, normocephalic - Eye Eye exam: Present: EOMI, PERRL, sclera anicteric Additional comments: no conjunctival hemorrhage - ENT ENT exam: Present: mucous membranes moist Additional comments: no oral lesions - Neck Neck exam: Present: full ROM. Absent: thyromegaly - Respiratory Respiratory exam: Present: CTAB, wheezes. Absent: rhonchi - Cardiovascular Cardiovascular exam: Present: RRR, +S1, +S2. Absent: diastolic murmur, systolic murmur - GI/Abdominal GI/Abdominal exam: Present: normal bowel sounds, soft. Absent: tenderness - Extremities Exam Additional comments: right elbow surgically wrapped. otherwise no changes - Neurological Exam Neurological exam: Present: altered, oriented X3. Absent: speech deficit - Psychiatric Psychiatric exam: Present: normal affect, normal mood - Skin Skin exam: Present: normal color Additional comments: no endocarditis stigmata Infectious Disease CN: Results - Labs CBC & Chem 7: 02/28/18 01:01 02/28/18 01:01 - VTE Documentation of Mechanical Device: Intermittent pneumatic compression device Consult Discharge Plan - Plan Referrals: Medhat Jones Jr, MD [Primary Care Provider] -
[2018-03-01 01:20] LABS: Basophils % 0.1 %; Hematocrit 31.8 % (37.5-50.1); Immature Granulocytes % 0.4 % (0-4); Lymphocytes # 0.8 K/mcL (0.6-4.6); Lymphocytes % 8.6 %; Mean Corpuscular HGB Conc 34.6 g/dL (31.6-35.5); Mean Corpuscular Hemoglobin 30.6 pg (28.0-33.3); Mean Corpuscular Volume 88.3 fL (83.0-100.0); Monocytes # 0.4 K/mcL (0.0-1.3); Monocytes % 3.9 %; Neutrophils # 7.7 K/mcL (1.6-8.9); Platelet Count 212 K/mcL (140-400); Red Cell Distribution Width 12.3 % (11.5-14.5)
[2018-03-01] MEDS: *HR* Heparin 5,000 UNIT/ML VIAL SQ SCH ×2 (05:40→17:03)
[2018-03-01] MEDS: *HR* HYDROcodone/Acet 10/325 mg TABLET PO SCH ×3 (08:13→17:01)
--- NOTE | 2018-03-01 11:43 | Orthopedics Progress Note ---
Date of Encounter: 03/01/18 Time of Encounter: 11:30 - Assessment and Plan (1) Septic olecranon bursitis of right elbow Current Visit: Yes Status: Acute POD#1 s/p - Right elbow incision and drainage of suppurative olecranon bursa Postop dressings removed and packing removed. Improvement to erythema, swelling and ROM. Begin local wound care washing with soap/water TID and recover with gauze/ kerliz dressings until fully healed. Patient will continue this wound care at home upon discharge as well. Cx - +MRSA Labs WBC 17.8 --> 8.9 ESR 19 --> 33 CRP 168 --> 85 ROM as tolerated. No heavy lifting. Dr. Zarate recommends one more night IV abx then plan for discharge tomorrow. Appreciate ID consult and input for abx management. Will follow up with Yomaira Osuna PA-C in [facility] office on 03/08/18 at 2:30pm. Subjective Principal diagnosis: POD#1 s/p Right elbow I&D of suppurative olecranon bursa Interval history: Patient doing well with no concerns. He states the swelling and pain have improved since surgery. He has been trying to bend the elbow some and states he has been able to get further motion since surgery as well. Denies any new numbness or tingling. No events overnight. Objective Vital signs: Vital Signs Temp Pulse Resp BP Pulse Ox 03/01/18 10:34 98.7 F 65 16 124/72 96 03/01/18 07:43 97.9 F 52 14 148/74 96 03/01/18 06:58 99.0 F 86 18 161/80 94 03/01/18 00:05 97.7 F 57 12 144/76 96 02/28/18 20:34 97.7 F 56 12 134/69 92 02/28/18 17:00 98.2 F 50 16 160/71 98 02/28/18 16:35 98 F 55 16 165/84 98 02/28/18 16:12 97.5 F L 48 14 155/92 98 02/28/18 16:02 97.5 F L 57 14 160/87 93 02/28/18 15:51 58 14 159/81 93 06/19/18 15:41 63 16 145/83 96 02/28/18 15:31 97.4 F L 71 16 144/83 98 02/28/18 11:47 98.2 F 52 14 139/63 95 Intake and Output 02/28/18 03/01/18 03/01/18 23:59 07:59 15:59 Intake Total 550 / 550 Balance 550 / 550 Intake: IV Fluids 250 / 250 Vancocin 1,250 MG In 0.9 % 250 / 250 Sodium Chloride 250 ML @ 167 mls/hr IVPB Q12H [facility] Rx#: [id number] Oral 300 / 300 Other: Meal Dinner Percent of Meal Consumed 50% Incision: draining (Continued but improving erythema and swelling to posterior elbow. Sutures in place with opening to middle and packing in place. Minimal serous drainage after removal of packing. No fluctuance to palpation. Mild tenderness around incison to palpation. ROM roughly 20-100 degrees flexion, full ROM hand/wrist. grossly NV intact) - Labs CBC & BMP: 03/01/18 00:50 02/28/18 01:01 Labs: Abnormal lab results RBC 3.60 M/mcL (4.19-5.50) L 03/01/18 00:50 Hgb 11.0 g/dL (12.9-16.9) L 03/01/18 00:50 Hct 31.8 % (37.5-50.1) L 03/01/18 00:50 ESR 33 mm/hr (0-10) H 03/01/18 00:50 PT 13.0 Seconds (9.4-12.1) H 02/26/18 01:54 Chloride 109 mEq/L (98-107) H 02/28/18 01:01 Carbon Dioxide 21 mEq/L (23-29) L 02/28/18 01:01 Glucose 118 mg/dL (70-105) H 02/28/18 01:01 C-Reactive Protein 85 mg/L (Less than 10) H 03/01/18 00:50 Vancomycin Trough 13 mcg/mL (5-10) H 02/27/18 06:40 - VTE Documentation of Mechanical Device: Intermittent pneumatic compression device Consult Discharge Plan - Plan Referrals: Medhat Jones Jr, MD [Primary Care Provider] -
--- NOTE | 2018-03-01 13:17 | Internal Med Progress Note ---
Date of Encounter: 03/01/18 Time of Encounter: 13:15 - Assessment and plan (1) Septic olecranon bursitis of right elbow Current Visit: Yes Status: Acute Assessment and plan: Being evaluated by orthopedics. On IV antibiotics. Clinically getting better. s/p incision and drainage in last 24hrs. Wound culture growing MRSA. Seen by ID, continue vancomycin and d/c zosyn. Appreciate ID recs (2) Cellulitis Current Visit: Yes Status: Acute Assessment and plan: With abscess due to septic bursitis of the olecranon bursa on the right hand. Management as above Qualifiers: Site of cellulitis: extremity Site of cellulitis of extremity: upper extremity Laterality: right Qualified Code(s): L03.113 - Cellulitis of right upper limb (3) DVT prophylaxis Current Visit: Yes Status: Acute Assessment and plan: Continue subcutaneous heparin (4) Chronic GERD Current Visit: Yes Status: Chronic Assessment and plan: On omeprazole. Will continue. - Time Spent With Patient Total time spent is greater than 50% in coordination of care (as documented) at patient's floor/unit and/or counseling patient: - Subjective Interval history: No acute events overnight.Had elbow debridement done - Constitutional Vitals: Temp Pulse Resp BP Pulse Ox 98.7 F 65 16 124/72 96 03/01/18 10:34 03/01/18 10:34 03/01/18 10:34 03/01/18 10:34 03/01/18 10:34 General appearance: Present: cooperative, A&O X 3, pleasant, no acute distress - Head Head exam: Present: atraumatic, normocephalic - Eye Eye exam: Present: PERRL, conjuntiva pink, sclera anicteric Pupils: Present: PERRL - Neck Neck exam general surgery: Present: supple, trachea midline. Absent: lymphadenopathy - Respiratory Respiratory exam: Present: CTAB. Absent: accessory muscle use, rales, rhonchi, wheezes - Cardiovascular Cardiovascular exam: Present: RRR, +S1, +S2. Absent: diastolic murmur, gallop, rubs, systolic murmur - GI/Abdominal GI/Abdominal exam: Present: normal bowel sounds, soft, no peritoneal signs. Absent: distended, tenderness - Extremities Exam Extremities exam: Present: warm, radial pulses palpable and symmetrical. Absent : calf tenderness, cyanotic, pedal edema - Neurological Exam Neurological exam: Present: CN II-XII intact, oriented X3, no focal deficits. Absent: pronater drift, facial droop, speech deficit - Skin Skin exam: Present: dry, intact Internal Medicine: Result - Labs CBC & Chem 7: 03/01/18 00:50 02/28/18 01:01 Labs: Short CBC 03/01/18 Range/Units 00:50 WBC 8.9 (4.3-11.1) K/mcL Hgb 11.0 L (12.9-16.9) g/dL Hct 31.8 L (37.5-50.1) % Plt Count 212 (140-400) K/mcL Neutrophils # 7.7 (1.6-8.9) K/mcL - ABG Interpretation ABG results: PT/INR, D-dimer PT 13.0 Seconds (9.4-12.1) H 02/26/18 01:54 - VTE Documentation of Mechanical Device: Intermittent pneumatic compression device Consult Discharge Plan - Plan Referrals: Medhat Jones Jr, MD [Primary Care Provider] -
--- NOTE | 2018-03-01 14:02 | Infectious Disease Progress No ---
Date of Encounter: 03/01/18 Time of Encounter: 14:00 - Assessment and Plan (1) Sepsis Current Visit: Yes Status: Acute Resolved Had 2 sisters criteria on admission Likely secondary to olecranon bursitis infection Qualifiers: Sepsis type: sepsis due to unspecified organism Qualified Code(s): A41.9 - Sepsis, unspecified organism (2) Septic olecranon bursitis of right elbow Current Visit: Yes Status: Acute causative organism MRSA s/p I&D by Dr. Best on 02/28 intra op findings: fat necrosis and purulence; intra op cultures pending CT does not reveal osteomyellitis; ESR not very elevated. Blood cultures no growth to date wait for intra op cultures to finalize start patient on vancomycin with goal trough around 15 d/c ciprofloxacin d/w patient and about adverse reactions of vancomycin monitor labs and for drug toxicity. We will decide and they are to the patient can be switched to oral antibiotic and discharged on oral versus IV. Also have to discuss with Dr. best prior to make an that final decision (3) HTN (hypertension) Current Visit: Yes Status: Acute Qualifiers: Hypertension type: unspecified Qualified Code(s): I10 - Essential (primary ) hypertension (4) Tobacco abuse Current Visit: Yes Status: Acute (5) Bradycardia Current Visit: Yes Status: Acute (6) Cellulitis Current Visit: Yes Status: Acute Qualifiers: Site of cellulitis: extremity Site of cellulitis of extremity: upper extremity Laterality: right Qualified Code(s): L03.113 - Cellulitis of right upper limb - Subjective Interval history: Patient seen and examined. Seems to be doing well clinically. No chest pain no shortness of breath. He did have one watery bowel movements a day. Wound was changed by orthopedics and they say it looks so much better. Infect Dis PN-Objective Data - Labs CBC & Chem 7: 03/01/18 00:50 02/28/18 01:01 Labs: Laboratory Results - last 24 hr 03/01/18 03/01/18 03/01/18 00:50 00:50 00:50 WBC 8.9 RBC 3.60 L Hgb 11.0 L Hct 31.8 L MCV 88.3 MCH 30.6 MCHC 34.6 RDW 12.3 Plt Count 212 MPV 12.0 Immature Gran % 0.4 Seg Neutrophils % 87.0 Lymphocytes % 8.6 Monocytes % 3.9 Eosinophils % 0.0 Basophils % 0.1 Neutrophils # 7.7 Lymphocytes # 0.8 Monocytes # 0.4 Eosinophils # 0.0 Basophils # 0.0 ESR 33 H C-Reactive Protein 85 H Cultures: Cultures 02/28/18 18:21 Blood Culture - Preliminary Peripheral Venipuncture Culture is incubating and being continuously monitored for growth. Final report to follow. 02/28/18 18:21 Blood Culture - Preliminary Peripheral Venipuncture Culture is incubating and being continuously monitored for growth. Final report to follow. Exam - Constitutional Vitals: Temp Pulse Resp BP Pulse Ox 98.7 F 65 16 124/72 96 03/01/18 10:34 03/01/18 10:34 03/01/18 10:34 03/01/18 10:34 03/01/18 10:34 General appearance: no acute distress, no febrile - Eye Eye exam: Present: EOMI, PERRL Additional comments: No conjunctival hemorrhage - Respiratory Respiratory exam: Present: CTAB. Absent: wheezes - Cardiovascular Cardiovascular exam: Present: RRR, +S1, +S2 - GI/Abdominal GI/Abdominal exam: Present: normal bowel sounds, soft. Absent: tenderness - Extremities Exam Additional comments: Right elbow surgically packed - VTE Documentation of Mechanical Device: Intermittent pneumatic compression device Consult Discharge Plan - Plan Referrals: Medhat Jones Jr, MD [Primary Care Provider] -
[2018-03-01] MEDS: Lactobacillus 1 EACH CAP.SPRINK PO SCH (17:01)
[2018-03-02] MEDS: Ibuprofen 400 MG TABLET PO PRN (00:31)
[2018-03-02] MEDS: *HR* HYDROcodone/Acet 10/325 mg TABLET PO SCH ×3 (09:03→17:17)
[2018-03-02] MEDS: Lactobacillus 1 EACH CAP.SPRINK PO SCH (09:03)
[2018-03-02] MEDS: *HR* Heparin 5,000 UNIT/ML VIAL SQ SCH (09:04)
--- NOTE | 2018-03-02 09:24 | Orthopedics Progress Note ---
Date of Encounter: 03/02/18 Time of Encounter: 09:00 - Assessment and Plan (1) Septic olecranon bursitis of right elbow Current Visit: Yes Status: Acute POD#2 s/p - Right elbow incision and drainage of suppurative olecranon bursa Continued improvement to erythema, swelling and ROM. Continue local wound care washing with soap/water TID and recover with gauze/ kerliz dressings until fully healed. Patient will continue this wound care at home upon discharge as well. wound Cx +MRSA Labs from yesterday - have not been repeated today WBC 17.8 --> 8.9 ESR 19 --> 33 CRP 168 --> 85 ROM as tolerated. No heavy lifting. Appreciate ID consult and input for abx management, making decision on IV vs PO abx upon discharge. Will follow up with Yomaira Osuna PA-C in [facility] office on 03/08/18 at 2:30pm. Subjective Principal diagnosis: POD#2 s/p Right elbow I&D of suppurative olecranon bursa Interval history: Patient doing well with no concerns. He continues to see improvement in swelling and motion. Has numbness around incision but denies any to fingers. No events overnight. He states the dressings had to be reinforced due to draining through them overnight. Objective Vital signs: Vital Signs Temp Pulse Resp BP Pulse Ox 03/02/18 06:24 98.5 F 50 16 146/84 95 03/01/18 23:28 98.3 F 49 12 154/75 97 03/01/18 19:38 98.4 F 53 14 159/85 96 03/01/18 14:45 98.1 F 60 14 138/71 96 03/01/18 10:34 98.7 F 65 16 124/72 96 Intake and Output 03/01/18 03/02/18 03/02/18 23:59 07:59 15:59 Intake Total 730 / 730 Output Total 850 / 850 Balance 730 / 730 -850 / -850 Intake: IV Fluids 250 / 250 Vancocin 1,250 MG In 0.9 % 250 / 250 Sodium Chloride 250 ML @ 167 mls/hr IVPB Q12H [facility] Rx#: [id number] Oral 480 / 480 Output: Urine 850 / 850 Other: Meal Dinner Percent of Meal Consumed 100% Stool Size Moderate Stool Consistency liquid # Voids 1 # Bowel Movements 1 Incision: draining (Continued erythema improving from yesterday. Minimal swelling. Sutures intact, Continued gaping to middle of incision slightly larger from yesterday. No active drainage from incision but moderate serous drainage on dressings. Mild tenderness to palpation, no fluctance noted. ROM of elbow roughly 10-100 degrees, full ROM hand and wrist. grossly NV intact. ) - Labs CBC & BMP: 03/01/18 00:50 02/28/18 01:01 Labs: Abnormal lab results RBC 3.60 M/mcL (4.19-5.50) L 03/01/18 00:50 Hgb 11.0 g/dL (12.9-16.9) L 03/01/18 00:50 Hct 31.8 % (37.5-50.1) L 03/01/18 00:50 ESR 33 mm/hr (0-10) H 03/01/18 00:50 PT 13.0 Seconds (9.4-12.1) H 02/26/18 01:54 Chloride 109 mEq/L (98-107) H 02/28/18 01:01 Carbon Dioxide 21 mEq/L (23-29) L 02/28/18 01:01 Glucose 118 mg/dL (70-105) H 02/28/18 01:01 C-Reactive Protein 85 mg/L (Less than 10) H 03/01/18 00:50 Vancomycin Trough 13 mcg/mL (5-10) H 02/27/18 06:40 - VTE Documentation of Mechanical Device: Intermittent pneumatic compression device Consult Discharge Plan - Plan Referrals: Medhat Jones Jr, MD [Primary Care Provider] -
--- NOTE | 2018-03-02 11:20 | Internal Med Progress Note ---
Date of Encounter: 03/02/18 Time of Encounter: 11:00 - Assessment and plan (1) Septic olecranon bursitis of right elbow Current Visit: Yes Status: Acute Assessment and plan: Being evaluated by orthopedics. On IV antibiotics with vancomycin. Clinically getting better. s/p incision and drainage in last 24hrs. Wound culture growing MRSA. Seen by ID, continue vancomycin and d/c zosyn. Appreciate ID recs for PO vs IV antibiotics on discharge (2) Cellulitis Current Visit: Yes Status: Acute Assessment and plan: With abscess due to septic bursitis of the olecranon bursa on the right hand. Management as above Qualifiers: Site of cellulitis: extremity Site of cellulitis of extremity: upper extremity Laterality: right Qualified Code(s): L03.113 - Cellulitis of right upper limb (3) DVT prophylaxis Current Visit: Yes Status: Acute Assessment and plan: Continue subcutaneous heparin (4) Chronic GERD Current Visit: Yes Status: Chronic Assessment and plan: On omeprazole. Will continue. - Time Spent With Patient Total time spent is greater than 50% in coordination of care (as documented) at patient's floor/unit and/or counseling patient: - Subjective Interval history: No acute events overnight.Had elbow debridement done - Constitutional Vitals: Temp Pulse Resp BP Pulse Ox 98.5 F 50 16 146/84 95 03/02/18 06:24 03/02/18 06:24 03/02/18 06:24 03/02/18 06:24 03/02/18 06:24 General appearance: Present: cooperative, A&O X 3, pleasant, no acute distress - Head Head exam: Present: atraumatic, normocephalic - Eye Eye exam: Present: PERRL, conjuntiva pink, sclera anicteric Pupils: Present: PERRL - Neck Neck exam general surgery: Present: supple, trachea midline. Absent: lymphadenopathy - Respiratory Respiratory exam: Present: CTAB. Absent: accessory muscle use, rales, rhonchi, wheezes - Cardiovascular Cardiovascular exam: Present: RRR, +S1, +S2. Absent: diastolic murmur, gallop, rubs, systolic murmur - GI/Abdominal GI/Abdominal exam: Present: normal bowel sounds, soft, no peritoneal signs. Absent: distended, tenderness - Extremities Exam Extremities exam: Present: warm, radial pulses palpable and symmetrical. Absent : calf tenderness, cyanotic, pedal edema - Neurological Exam Neurological exam: Present: CN II-XII intact, oriented X3, no focal deficits. Absent: pronater drift, facial droop, speech deficit - Skin Skin exam: Present: dry, intact Internal Medicine: Result - Labs CBC & Chem 7: 03/01/18 00:50 02/28/18 01:01 - ABG Interpretation ABG results: PT/INR, D-dimer PT 13.0 Seconds (9.4-12.1) H 02/26/18 01:54 - VTE Documentation of Mechanical Device: Intermittent pneumatic compression device Consult Discharge Plan - Plan Referrals: Medhat Jones Jr, MD [Primary Care Provider] -
--- NOTE | 2018-03-02 12:50 | Infectious Disease Progress No ---
Date of Encounter: 03/02/18 Time of Encounter: 12:47 - Assessment and Plan (1) Sepsis Current Visit: Yes Status: Acute Resolved Had 2 SIRS criteria on admission Likely secondary to olecranon bursitis infection Qualifiers: Sepsis type: sepsis due to unspecified organism Qualified Code(s): A41.9 - Sepsis, unspecified organism (2) Septic olecranon bursitis of right elbow Current Visit: Yes Status: Acute causative organism MRSA s/p I&D by Dr. Zarate on 02/28 intra op findings: fat necrosis and purulence; intra op cultures pending CT does not reveal osteomyellitis; ESR not very elevated. Blood cultures no growth to date wait for intra op cultures to finalize start patient on vancomycin with goal trough around 15 d/c ciprofloxacin d/w patient and about adverse reactions of vancomycin monitor labs and for drug toxicity. I had a discussion with Dr. Zarate and he tells me that intraoperatively there is no fasciitis there is no osteomyelitis and he feels as was all skin and soft tissue infection. I will repeat labs today including CBC, BMP, ESR and CRP stat and if there is no acute change in his labs we can discharge him on Bactrim DS 1 tablet twice a day dispense 24 (3) HTN (hypertension) Current Visit: Yes Status: Acute Qualifiers: Hypertension type: unspecified Qualified Code(s): I10 - Essential (primary ) hypertension (4) Tobacco abuse Current Visit: Yes Status: Acute (5) Bradycardia Current Visit: Yes Status: Acute (6) Cellulitis Current Visit: Yes Status: Acute Qualifiers: Site of cellulitis: extremity Site of cellulitis of extremity: upper extremity Laterality: right Qualified Code(s): L03.113 - Cellulitis of right upper limb - Subjective Interval history: Patient seen and examined. Appears comfortable. Denies any headache. No chest pain or shortness of breath. No nausea or vomiting. No urinary symptoms. No diarrhea. Elbow surgical wound appears intact. Labs today pending Blood cultures from 02/28 no growth to date Infect Dis PN-Objective Data - Labs CBC & Chem 7: 03/01/18 00:50 02/28/18 01:01 Cultures: Cultures 02/28/18 14:59 Wound Culture - Preliminary Right Elbow Staphylococcus aureus 02/28/18 18:21 Blood Culture - Preliminary Peripheral Venipuncture Culture is incubating and being continuously monitored for growth. Final report to follow. 02/28/18 18:21 Blood Culture - Preliminary Peripheral Venipuncture Culture is incubating and being continuously monitored for growth. Final report to follow. Exam - Constitutional Vitals: Temp Pulse Resp BP Pulse Ox 98.0 F 43 17 144/64 98 03/02/18 12:03 03/02/18 12:03 03/02/18 12:03 03/02/18 12:03 03/02/18 12:03 General appearance: no acute distress, no febrile - Respiratory Respiratory exam: Present: CTAB. Absent: wheezes - Cardiovascular Cardiovascular exam: Present: RRR, +S1, +S2 - GI/Abdominal GI/Abdominal exam: Present: soft. Absent: tenderness - VTE Documentation of Mechanical Device: Intermittent pneumatic compression device Consult Discharge Plan - Plan Referrals: Medhat Jones Jr, MD [Primary Care Provider] -
[2018-03-02 14:05] LABS: Basophils # 0.1 K/mcL (0.0-0.2); Basophils % 0.6 %; Eosinophils # 0.1 K/mcL (0.0-0.6); Eosinophils % 0.6 %; Hematocrit 32.7 % (37.5-50.1); Hemoglobin 11.3 g/dL (12.9-16.9); Immature Granulocytes % 0.6 % (0-4); Lymphocytes # 2.3 K/mcL (0.6-4.6); Mean Corpuscular HGB Conc 34.6 g/dL (31.6-35.5); Mean Corpuscular Hemoglobin 30.6 pg (28.0-33.3); Mean Corpuscular Volume 88.6 fL (83.0-100.0); Mean Platelet Volume 12.4 fL (9.4-12.4); Monocytes # 0.7 K/mcL (0.0-1.3); Monocytes % 6.6 %; Neutrophils # 6.8 K/mcL (1.6-8.9); Platelet Count 223 K/mcL (140-400); Red Blood Count 3.69 M/mcL (4.19-5.50); Red Cell Distribution Width 12.4 % (11.5-14.5); Segmented Neutrophils % 68.6 %
[2018-03-02 14:35] LABS: BUN/Creatinine Ratio 13 (6-26); Blood Urea Nitrogen 12 mg/dL (8-23); C-Reactive Protein 39 mg/L (Less than 10); Carbon Dioxide 25 mEq/L (23-29); Chloride 107 mEq/L (98-107); Glucose 149 mg/dL (70-105); Osmolality,Calculated 293 (280-300); Potassium 3.8 mEq/L (3.5-5.1); Sodium 140 mEq/L (136-145); eGFR For African Americans > 60 (> 60); eGFR For Non-African Americans > 60 (> 60)
--- NOTE | 2018-03-02 15:19 | Discharge Summary ---
Orders not resulted at time of discharge: Pending orders 02/28/18 14:59 Culture,Anaerobic [RM] Routine Culture,Wound [RM] Routine 02/28/18 18:21 Culture,Blood [BC] Stat 03/03/18 04:00 CBC [Complete Blood Count] [HEME] AM 0400 03/04/18 04:00 CBC [Complete Blood Count] [HEME] AM 04003/05/18 04:00 CBC [Complete Blood Count] [HEME] AM 04003/06/18 04:00 CBC [Complete Blood Count] [HEME] AM 04003/07/18 04:00 CBC [Complete Blood Count] [HEME] AM 0400 03/08/18 04:00 CBC [Complete Blood Count] [HEME] AM 0400 Date of Encounter: 03/02/18 Time of Encounter: 15:00 - Discharge Diagnosis (1) Septic olecranon bursitis of right elbow Priority: Primary Status: Acute Assessment and Plan: 67 year old male who presents to the ER tonight with complaints of pain, swelling, redness, and a draining lesion from his right elbow. He first noticed a small pustule about a week ago in his elbow. It then grew and became increasingly tender and warm and swollen over the next several days. He went to the urgent care 3 days ago for evaluation and was placed on antibiotics along with an ointment. He took these antibiotics as prescribed. Nonetheless, the wound became more severe and the pain more intense. He therefore came to ER for evaluation. In the ER, he was found to have some leukocytosis, profound redness, swelling, tenderness and drainage from his wound. A CT scan was performed and revealed olecranon bursitis with surrounding edema suggesting an infection/cellulitis. He was assessed with sepsis with olecranon bursitis and was seen by orthopedics. He was started on IV antibiotics with vanc and zosyn. Wound cultures were positive for MRSA. He had an incision and elbow drainage done by orthopedic surgery on 02/28/18. Tolerated procedure well with no acute complications. He was seen by ID who recommended continuing vanc inpatient and discharge on bactrim to complete a total of 14 days of antibiotics. 35minutes was spent discharging this patient (2) Cellulitis Priority: Secondary Status: Acute Qualifiers: Site of cellulitis: extremity Site of cellulitis of extremity: upper extremity Laterality: right Qualified Code(s): L03.113 - Cellulitis of right upper limb (3) DVT prophylaxis Priority: Secondary Status: Acute (4) Chronic GERD Priority: Secondary Status: Chronic Hospital course: Mr. Jackson is a 67 year old male - Time Spent with Patient Total time spent providing and/or coordinating discharge services: - Discharge Medications Prescriptions: Sulfamethoxazole/Trimeth DS [Bactrim DS] 1 each PO BID #24 tablet Home Medications: HYDROcodone/Acet 10/325 mg [[place] 10-325 mg] 1 tab PO Q4H PRN 02/23/18 [History] Mupirocin [Bactroban Oint] 1 appl TP DAILY 02/25/18 [History] Omeprazole [PriLOSEC] 40 mg PO DAILY 02/25/18 [History] Sulfamethoxazole/Trimeth DS [Bactrim Ds] 1 tab PO BID 02/25/18 [History] Gabapentin [Neurontin] 600 mg PO HS 02/26/18 [History] Sulfamethoxazole/Trimeth DS [Bactrim DS] 1 each PO BID #24 tablet 03/02/18 [Rx] Allergies/Adverse Reactions: 3 Allergy/AdvReac Type Severity Reaction Status Date / Time No Known Allergies Allergy Verified 02/23/18 17:23 Date of admission: 02/26/18 00:35 Primary care physician: Medhat Jones Jr, MD Consults: 02/28/18 14:36 Consult to Infectious Diseases [CONS] Routine Consulting Provider: [facility] [place] Reason for Consult: MRSA in wound cultures Call Completed: Yes - Constitutional Vitals: Temp Pulse Resp BP Pulse Ox 98.0 F 43 17 144/64 98 03/02/18 12:03 03/02/18 12:03 03/02/18 12:03 03/02/18 12:03 03/02/18 12:03 General appearance: Present: cooperative, A&O X 3, pleasant, no acute distress - Head Head exam: Present: atraumatic, normocephalic - Eye Eye exam: Present: PERRL, conjuntiva pink, sclera anicteric Pupils: Present: PERRL - Neck Neck exam general surgery: Present: supple, trachea midline. Absent: lymphadenopathy - Respiratory Respiratory exam: Present: CTAB. Absent: accessory muscle use, rales, rhonchi, wheezes - Cardiovascular Cardiovascular exam: Present: RRR, +S1, +S2. Absent: diastolic murmur, gallop, rubs, systolic murmur - GI/Abdominal GI/Abdominal exam: Present: normal bowel sounds, soft, no peritoneal signs. Absent: distended, tenderness - Extremities Exam Extremities exam: Present: warm, radial pulses palpable and symmetrical. Absent : calf tenderness, cyanotic, pedal edema - Neurological Exam Neurological exam: Present: CN II-XII intact, oriented X3, no focal deficits. Absent: pronater drift, facial droop, speech deficit - Skin Skin exam: Present: dry, intact - Patient Status Disposition: Home, Self-Care Condition: Good - Discharge Instructions Follow Up With: Yomaira Osuna, PAC [Physician Customs Investigator] - 03/08/18 2:30 pm Additional Instructions: Followup with Y[facility]a [facility]. Make sure to finish the entire antibiotic prescription, even if you feel better and all symptoms are gone. Go to nearest emergency room for any new or worsening symptoms. Change dressing three times a day at home - wash with soap and water, cover with gauze , and wrap with kerlix wrap. - VTE Documentation of Mechanical Device: Intermittent pneumatic compression device
[2018-03-02 16:06] VITALS: BP 138/75
== END 2018-03-02 17:50 | disposition home or self-care (01) | DRG 854 ==
LOC: 3NENU 18:20 → EMEROO 18:20 → 3NENU 23:05 → SUATTDRO 02-26 00:35
PROVIDERS: ADMIT Pediatrics; ATTEND Internal Medicine